=== PATIENT | female | born 1995 | race Caucasian/White ===

== ENCOUNTER → 2017-06-20 | Outpatient (CLI) | payer BC | END | disposition home or self-care (01) | LOC: C.PAPS 10:12 | PROVIDERS: ATTEND Physician Assistant | DX: Z12.4 Encounter for screening for malignant neoplasm of cervix (principal) ==

== ENCOUNTER → 2017-06-20 | Outpatient (CLI) | payer OTHER | END | disposition home or self-care (01) | LOC: C.LABSPEC 17:23 | PROVIDERS: ATTEND Physician Assistant | DX: Z01.419 Encounter for gynecological examination (general) (routine) without abnormal findings (principal) ==

== ENCOUNTER 2018-01-28 01:42 | Emergency (ER) | payer BC ==
[~2018-01-28] VITALS: Ht 163.8 cm; Wt 65.0 kg
[2018-01-28 01:47] VITALS: TEMP 36.9; Ht 163.8 cm; Wt 65.0 kg
--- NOTE | 2018-01-28 01:55 | EMERGENCY ROOM VISIT NOTE ---
History Report prepared by Jesus: Alicia Tuttle Under the Supervision of: Dr. Shayna Marroquin D.O. 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 As per EMS, the patient was found outside of [facility] on [facility]. They state people were holding her up and trying to get her home but she was unable to stand on her own. EMS states reports the patient was found covered in her own vomit and she was unable to be released as she was unresponsive. HPI limited due to intoxication. 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 HPI and ROS limited due to the patient's intoxication. Past Medical & Surgical Medical Problems: (1) No significant past medical history Family History Patient reports no known family medical history. Social History Smoking Status: Unknown if Ever Smoked Smokeless Tobacco Use: Unknown Alcohol Use: occasionally Current/Historical Medications No Active Prescriptions or Reported Meds Allergies Coded Allergies: No Known Allergies (Unverified , 01/28/18) Physical Exam Vital Signs Date Time Temp Pulse Resp B/P (MAP) Pulse Ox O2 Delivery O2 Flow Rate FiO2 01/28/18 06:48 71 18 87/52 98 Room Air 01/28/18 05:26 65 18 82/40 96 Room Air 01/28/18 05:11 65 01/28/18 03:37 69 101/58 96 Room Air 01/28/18 03:30 81 16 95 Room Air 01/28/18 03:00 62 14 96 Room Air 01/28/18 02:30 61 15 96 Room Air 01/28/18 02:00 61 12 98/53 95 Room Air 01/28/18 01:51 58 01/28/18 01:47 36.9 61 18 104/61 95 Room Air Physical Exam General: Semi-responsive. Patient smells of alcohol and vomit. HEENT: Head - Normocephalic and atraumatic Pupils are 6 mm and nonreactive Extraocular eye muscles are intact, and sclera are anicteric. Nose - moist nasal mucosa without discharge. Mouth - moist buccal mucosa. Oropharynx is nonerythematous and there is no tonsillar exudate or edema noted. Neck: Supple; no JVD, nuchal rigidity, cervical lymphadenopathy, or auscultated bruits. Heart: Regular rate and rhythm. There is a normal S1 and S2 with no murmurs, clicks, or gallops appreciated. Lungs: Clear to auscultation bilaterally with no wheezes, rales, or rhonchi. Abdomen: Soft, completely nontender, nondistended, with good bowel sounds. There are no palpable pulsatile masses or hepatosplenomegaly. There is no guarding, rigidity, or rebound noted. Extremities: No evidence of cyanosis, clubbing, or edema. There are easily palpable peripheral pulses. Contusions on both of her upper arms. Skin: warm and dry with good turgor and no rashes. Medical Decision & Procedures Laboratory Results 01/28/18 01:50 Test 01/28/18 01:50 Anion Gap 8.0 mmol/L (3-11) Est Creatinine Clear Calc Drug Dose 106.2 ml/min Estimated GFR () 135.9 Estimated GFR (Non- 117.2 BUN/Creatinine Ratio 15.5 (10-20) Calcium Level 7.3 mg/dl (8.5-10.1) Ethyl Alcohol mg/dL 277.0 mg/dl (0-3) Laboratory results per my review. Medications Administered Medications (Trade) Dose Ordered Sig/Martha Route Start Time Stop Time Status Last Admin Dose Admin Potassium Chloride (Klor-Con M10) 40 meq STK-MED ONCE .ROUTE 01/28/18 06:43 01/28/18 06:44 DC 01/28/18 06:43 40 MEQ Procedure Potassium Chloride 40 meq ED Course 0143: Past medical records reviewed. The patient was evaluated in room A9. A complete history and physical exam was performed. The patient was placed in the prone position to avoid aspiration. They were observed on the night monitor and pulse oximeter. Labs were drawn as above 0405: I checked on the patient at this time. She was sleeping. Her blood pressure was slightly low. 0516: I checked on the patient at this time. She was asleep and her vitals were stable. 0643: Ordered Potassium Chloride 40 meq PO. 0648: Upon reevaluation, the patient is awake. I asked the patient about the bruising to her arm. She states that it is from a new puppy. The patient's friends are here and they will take her home. I discussed findings and results with her. She verbalized agreement of the treatment plan. She was discharged home. 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 Differential diagnosis include alcohol overdose, drug intoxication, hypoglycemia, head injury , as well as others were entertained. Lab results show: Alcohol is 277 Potassium is 2.9 Normal renal function Glucose 98 Calcium 7.3 The patient was brought to the emergency department after consuming too much alcohol. There were no obvious signs of trauma or complaints of pain. They were observed closely throughout the night and remained stable while here in the ER. The patient was allowed time to sober up prior to discharge. I had a conversation with the patient about the hazards of such excessive alcohol use. She was encouraged to take foods high in potassium. Medication Reconcilliation Current Medication List: was personally reviewed by me Blood Pressure Screening Patient's blood pressure: Normal blood pressure Blood pressure disposition: Did not require urgent referral Impression Primary Impression: Alcohol overdose Additional Impression: Hypokalemia Scribe Attestation The scribe's documentation has been prepared under my direction and personally reviewed by me in its entirety. I confirm that the note above accurately reflects all work, treatment, procedures, and medical decision making performed by me. Departure Information Dispostion Home / Self-Care Prescriptions No Active Prescriptions or Reported Meds Referrals No Doctor, Assigned (PCP) Forms HOME CARE DOCUMENTATION FORM, IMPORTANT VISIT INFORMATION Patient Instructions My [facility] Additional Instructions Avoid such excessive alcohol use in the future. Tylenol 650 mg every 6 hours for headache. Drink plenty of fluids and take a bland diet today. Return to the emergency department for worsening symptoms or any medical concerns. Take foods high in potassium Problem Qualifiers Primary Impression: Alcohol overdose Encounter type: initial encounter Injury intent: accidental or unintentional Qualified Codes: T51.91XA - Toxic effect of unspecified alcohol , accidental (unintentional), initial encounter
[2018-01-28 02:15] LABS: CALCIUM 7.3 mg/dl (8.5-10.1); CREATININE 0.72 mg/dl (0.60-1.20); POTASSIUM 2.9 mmol/L (3.5-5.1)
[2018-01-28] MEDS ORDERED: POTASSIUM CHLORIDE 20 MEQ TABCR PO STA (05:15)
[2018-01-28] MEDS ORDERED: POTASSIUM CHLORIDE 10 MEQ TABCR ONE (06:43)
[2018-01-28 06:48] VITALS: BP 87/52; PULSE 71; O2SAT 98
== END 2018-01-28 06:52 | disposition home or self-care (01) ==
LOC: C.EDA 01:42 → EDBD 01:42 → C.EDA 06:52
DX: T51.0X1A Toxic effect of ethanol, accidental (unintentional), initial encounter (principal); E87.6 Hypokalemia; S40.021A Contusion of right upper arm, initial encounter; S40.022A Contusion of left upper arm, initial encounter; X58.XXXA Exposure to other specified factors, initial encounter